=== PATIENT | male | born 1995 | race Caucasian/White ===

== ENCOUNTER 2023-10-29 07:41 | Emergency (ER) | payer MEDICAID ==
[~2023-10-29] VITALS: Ht 177.8 cm; Wt 81.8 kg
[~2023-10-29 07:41] MED LIST: ALBU18HF12 IH
[2023-10-29 07:45] VITALS: TEMP 98.2
[2023-10-29 08:18] VITALS: BP 118/77; PULSE 89; RESP 16
== END 2023-10-29 09:08 | disposition home or self-care (01) ==
LOC: EMS 07:41
DX: S01.01XD Laceration without foreign body of scalp, subsequent encounter (principal); Z48.02 Encounter for removal of sutures; J45.909 Unspecified asthma, uncomplicated; F12.90 Cannabis use, unspecified, uncomplicated; F17.210 Nicotine dependence, cigarettes, uncomplicated
CPT/HCPCS: 99281; Z7502

== ENCOUNTER 2025-02-17 03:48 | Emergency (ER) | payer MEDICAID, OTHER ==
[~2025-02-17] VITALS: Ht 177.8 cm; Wt 95.5 kg
[2025-02-17 05:10] VITALS: BP 108/77; PULSE 109; RESP 16; TEMP 97.3; O2SAT 99
[2025-02-17] MEDS ORDERED: DOXY-354 PO (05:13)
[2025-02-17] MEDS: IBUPROFEN 400 MG TABLET PO ONE (05:51)
[2025-02-17] MEDS: ACETAMINOPHEN 500 MG TABLET PO ONE (05:52)
[2025-02-17] MEDS: DOXYCYCLINE HYCLATE 100 MG TABLET PO ONE (05:53)
== END 2025-02-17 07:10 | disposition home or self-care (01) ==
LOC: EMS 03:49
DX: L02.416 Cutaneous abscess of left lower limb (principal); L03.116 Cellulitis of left lower limb; T63.301A Toxic effect of unspecified spider venom, accidental (unintentional), initial encounter; J45.909 Unspecified asthma, uncomplicated; F12.90 Cannabis use, unspecified, uncomplicated; F17.210 Nicotine dependence, cigarettes, uncomplicated; Z79.899 Other long term (current) drug therapy; Y92.89 Other specified places as the place of occurrence of the external cause
CPT/HCPCS: 99284; Z7502; Z7610